=== PATIENT | female | born 1930 | race Caucasian/White ===

== ENCOUNTER 2016-10-23 08:17 | Emergency (ER) | payer OTHER ==
[~2016-10-23] VITALS: Ht 154.9 cm; Wt 65.0 kg
[~2016-10-23 08:17] MED LIST: ASPIR-TRIN325 MG PO; CARVEDILOL6.25 MG PO; CRESTOR40 MG PO; LOSARTAN POTASS50 MG PO; OMEPRAZOLE20 M3 PO
[2016-10-23 08:20] VITALS: BP 130/52
[2016-10-23] MEDS ORDERED: TRAMADOL HCL50 MG PO (08:52)
[2016-10-23] MEDS ORDERED: LOSARTAN POTAS100 MG PO (08:52)
[2016-10-23] MEDS ORDERED: PRAVASTATIN SOD40 MG PO (08:52)
[2016-10-23] MEDS ORDERED: ASPIRIN325 MG PO (08:53)
[2016-10-23] MEDS ORDERED: ULTRAM50 MG PO (09:33)
== END 2016-10-23 10:19 | disposition home or self-care (01) ==
LOC: EME 08:17
PROC: 2W3QX1Z Immobilization of Right Lower Leg using Splint (ICD-10-PCS; principal; 2016-10-23)
DX: S82.841A Displaced bimalleolar fracture of right lower leg, initial encounter for closed fracture (principal); I10 Essential (primary) hypertension; E78.5 Hyperlipidemia, unspecified; X50.9XXA Other and unspecified overexertion or strenuous movements or postures, initial encounter; Z88.0 Allergy status to penicillin
CPT/HCPCS: 73610; 99281; 99283